=== PATIENT | female | born 1950 ===

== ENCOUNTER 2016-07-10 12:51 | Emergency (ER) | payer MEDICARE, OTHER ==
[2016-07-10 13:04] VITALS: TEMP 97.7
--- NOTE | 2016-07-10 14:28 | C.PDOC ---
History Of Present Illness 65 yr old female presents to the ER for evaluation of left breast mass noted for the past few week. Patient states she was scheduled for a mammogram " at facility across [address] by my PMD but once getting there I was informed they do not accept my insurance and was told to go to ED for study". Patient denies history of breast disease in past, fever, night sweats, weight loss, denies Left breast pain, chest pain, SOB, dyspnea, diaphoresis, palpitation, skin changes over left breast, nipple changes or discharges, nausea, vomiting, or any other active complaints. Ambulate to Ed for evaluation, not n any apparent distress.. Time Seen by Provider: 07/10/16 13:19 Chief Complaint (Nursing): Abnormal Skin Integrity History Per: Patient History/Exam Limitations: no limitations Onset/Duration Of Symptoms: Days (Few weeks) Past Medical History Reviewed: Historical Data, Nursing Documentation, Vital Signs Vital Signs: Last Vital Signs Temp 97.7 F 07/10/16 12:57 Pulse 88 07/10/16 15:00 Resp 18 07/10/16 15:00 BP 132/78 07/10/16 15:00 Pulse Ox 97 07/10/16 19:23 - Medical History PMH: Asthma, Gastritis, HTN Family History: States: No Known Family Hx - Social History Hx Alcohol Use: No Hx Substance Use: No - Immunization History Hx Tetanus Toxoid Vaccination: Yes Hx Influenza Vaccination: Yes Hx Pneumococcal Vaccination: (unk) Review Of Systems Except As Marked, All Systems Reviewed And Found Negative. Constitutional: Negative for: Fever Cardiovascular: Negative for: Chest Pain Respiratory: Negative for: Shortness of Breath Gastrointestinal: Negative for: Nausea, Vomiting Musculoskeletal: Negative for: Back Pain Skin: Positive for: Other (Left breast mass. ) Neurological: Negative for: Weakness, Numbness Physical Exam - Physical Exam Appears: Well, Non-toxic, No Acute Distress Skin: Warm, Dry, No Rash Oral Mucosa: Moist Throat: Normal, No Erythema, No Exudate, No Drooling Neck: Trachea Midline, Supple Lymphatic: No Axilla Node Tenderness (Left) Chest: Symmetrical, No Deformity, No Tenderness, Other (Left Breast:Palpable breast mass, 4#5 cm at the 3 oclock position. No skin changes. No nipple changes. ) Cardiovascular: Rhythm Regular, No Murmur Respiratory: No Rales, No Rhonchi, No Stridor, No Wheezing Gastrointestinal/Abdominal: Soft, No Tenderness Extremity: No Pedal Edema, No Swelling Neurological/Psych: Oriented x3, Normal Speech ED Course And Treatment O2 Sat by Pulse Oximetry: 97 Pulse Ox Interpretation: Normal Progress Note: Clinical findings discussed with patent. [facility] about [facility] given to patient. Ref. to F/u with Breast Clinic in 1-2 days for further evluation of left breast mass. return if any new changes. Disposition - Disposition Referrals: [facility] [Outside] [facility] [Outside] [facility] [Outside] Disposition: HOME/ ROUTINE Disposition Time: 14:26 Condition: STABLE Additional Instructions: Follow up with [facility] at [facility] or [facility] return to Ed if any worsening or new changes. Instructions: Breast Mass (ED) Print Language: WELSH - Clinical Impression Clinical Impression: Breast mass in female - PA / STATION SUPERVISOR / Resident Statement MD/DO has reviewed & agrees with the documentation as recorded. - Scribe Statement The provider has reviewed the documentation as recorded by the Scribe Marcelle Brown All medical record entries made by the Scribe were at my direction and personally dictated by me. I have reviewed the chart and agree that the record accurately reflects my personal performance of the history, physical exam, medical decision making, and the department course for this patient. I have also personally directed, reviewed, and agree with the discharge instructions and disposition.
[2016-07-10 15:17] VITALS: BP 132/78; PULSE 88; RESP 18
[2016-07-10 19:22] VITALS: O2SAT 97
== END 2016-07-10 15:00 | disposition home or self-care (01) ==
LOC: C.ER 12:51
DX: N63 Unspecified lump in breast (principal)

== ENCOUNTER 2017-07-30 09:22 | Emergency (ER) | payer MEDICARE ==
[2017-07-30 09:36] VITALS: BMI 27.6
[2017-07-30 09:59] VITALS: RESP 26
--- NOTE | 2017-07-30 10:00 | C.PDOC ---
History Of Present Illness 66 year old female presents to the ED for asthma exacerbation x 2 days. Patient found no relief with home MDI and nebulizer, and last dose was prior to arrival. Patient reports subjective fever and cough. Patient is currently receiving chemotherapy for breast cancer (Dr. Jacobsen). History obtained via work station support specialist. VIA TRANS ASTHMA EXAC X 2 DAYS. NO RELIEF W HOME MDI AND NEB, LAST DOSE CLOCK AND WATCH HANDS DIPPER. SUBJ FEVER. + COUGH. CURRENTLY RECEIVING CHEMO FOR BREAST CA (DR JACOBSEN). 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 History/Exam Limitations: no limitations Onset/Duration Of Symptoms: Days (2) Current Symptoms Are (Timing): Still Present Current Respiratory Medications: See Home Med List Associated Symptoms: Fever Additional History Per: Patient Past Medical History Reviewed: Historical Data, Nursing Documentation, Vital Signs Vital Signs: Last Vital Signs Temp 100.6 F H 07/30/17 13:26 Pulse 120 H 07/30/17 13:26 Resp 26 H 07/30/17 13:26 BP 111/49 L 07/30/17 13:26 Pulse Ox 93 L 07/30/17 13:52 - Medical History PMH: Asthma, Gastritis, HTN Surgical History: No Surg Hx Family History: States: Unknown Family Hx - Social History Hx Alcohol Use: No Hx Substance Use: No - Immunization History Hx Tetanus Toxoid Vaccination: Yes Hx Influenza Vaccination: Yes Hx Pneumococcal Vaccination: (unk) Review Of Systems Constitutional: Positive for: Fever Respiratory: Positive for: Cough, Other (asthma exacerbation ) Physical Exam - Physical Exam Appears: Non-toxic, Other (in mild distress ) Skin: Normal Color, Warm, Dry Head: Atraumatic, Normacephalic Eye(s): bilateral: Normal Inspection Oral Mucosa: Moist Neck: Supple Chest: Symmetrical, No Deformity, No Tenderness, Other (sinus tachycardia ) Cardiovascular: Rhythm Regular, No Murmur Respiratory: No Rales, No Rhonchi, Wheezing (bilateral, expiratory ), Other ( tachypnea with retractions. speaking in full sentences ) Extremity: Normal ROM, Capillary Refill (less than 2 seconds ), No Other (edema ) Neurological/Psych: Oriented x3, Normal Speech, Normal Cognition ED Course And Treatment - Laboratory Results Result Diagrams: 07/30/17 10:38 07/30/17 10:38 ECG: Interpreted By Me, Viewed By Me ECG Rhythm: Sinus Tachycardia Rate From EC O2 Sat by Pulse Oximetry: 93 - Other Rad CXR X-Ray: Interpreted by Me, Viewed By Me Interpretation: PROCEDURE: CHEST RADIOGRAPH, 1 VIEW. HISTORY: SOB. COMPARISON: Comparison made with chest radiograph 01/14/2016 interval placement left subclavian MediPort with tip in the SVC. FINDINGS: LUNGS: Low lung volumes with crowded bronchovascular markings and mild bibasilar atelectasis. PLEURA: No pneumothorax or pleural fluid seen. CARDIOVASCULAR: Heart appears mildly enlarged. OSSEOUS STRUCTURES: No significant abnormalities. VISUALIZED UPPER ABDOMEN: Normal. OTHER FINDINGS: None. IMPRESSION: Low lung volumes with crowded bronchovascular markings and mild bibasilar atelectasis. - CT Scan/US CT angio Other Rad Studies (CT/US): Interpreted By Me, Read By Radiologist CT/US Interpretation: PROCEDURE: CT Chest with contrast (Pulmonary Angiogram). HISTORY: SOB. COMPARISON: None available. TECHNIQUE: Axial computed tomography images were obtained of the chest in the pulmonary arterial phase of enhancement. Coronal and sagittal reformatted images were created and reviewed. Intravenous contrast dose: 100 cc Visipaque 320. Radiation dose: Total exam DLP = 382.44 mGy-cm. This CT exam was performed using one or more of the following dose reduction techniques: Automated exposure control, adjustment of the mA and/or kV according to patient size, and/or use of iterative reconstruction technique. FINDINGS: PULMONARY ARTERIES: The visualized pulmonary trunk, right and left main, segmental and proximal subsegmental branches of the pulmonary arteries are patent with no definitive filling defects seen to suggest acute pulmonary embolus. Pulmonary trunk measures approximately 2.6 cm. AORTA: No acute findings. No evidence of thoracic aortic aneurysm Ascending thoracic aorta measures approximately 3.36 cm and descending thoracic aorta measures approximately 2.6 cm. Partially calcified atherosclerotic plaque seen along the aortic arch and to a lesser degree descending thoracic aorta. LUNGS: Chronic atelectasis and or scarring changes of both lung bases left greater than right, including the lingular and middle lobe regions. There is also a localized area of pleural thickening and adjacent parenchymal scarring in the left lateral upper lung field. . A 2nd elliptical shaped area of atelectasis/scarring seen slightly more inferior and anteriorly located extending to the pleural surface as well. PLEURAL SPACES: Unremarkable. No effusion or pneumothorax. HEART: Heart size is upper limits of normal/borderline enlarged. No significant pericardial effusion. . There is however relatively large elliptical shaped fluid collection adjacent to the right posterior inferior atrium within the mediastinum that measures approximately 4.1 x 3.0 cm. This could represent a large pericardial cyst or possibly a bronchogenic cyst former favored. LYMPH NODES: Few small nonspecific mediastinal lymph nodes are present none of which appear pathologically enlarged. Central airways midline and patent. No large central endoluminal lesions. There is a small hiatal hernia with slight wall thickening of the distal esophagus likely due to protrusion of gastric mucosa. BONES, CHEST WALL: Multilevel chronic appearing wedge compression fracture deformities of the thoracic and upper lumbar region. OTHER FINDINGS: The thyroid gland is enlarged and markedly heterogeneous containing multiple varying sized low-attenuation foci likely representing a nodular goiter. Followup thyroid ultrasound recommended. IMPRESSION: No evidence of acute central pulmonary embolus. Probable of moderately large pericardial cyst as described. See above discussion for differential diagnostic considerations. Chronic atelectasis and or scarring changes of both lung bases left greater than right, including the lingular and middle lobe regions. There is also a localized area of pleural thickening and adjacent parenchymal scarring in the left lateral upper lung field. A 2nd elliptical shaped area of atelectasis/ scarring seen slightly more inferior and anteriorly located extending to the pleural surface as well. Progress Note: Bloodwork, CT Angio Chest, CXR, EKG ordered and reviewed. Albuterol INH and Solu-Medrol IVP administered. Progress - Re-Evaluation Re-evaluation Note: 07/30/17 13:03 NARD PS FEELS BETTER "NORMAL". CTA B/L NO W/R/R IMPROVED COMPARED TO PRIOR. 07/30/17 13:34 D/W DR BARROSO AWARE OF ER FINDINGS. RECOMMENDS OBS. NO ABX @ THIS TIME. 07/30/17 13:47 PT ADVISED ADMISSION, REFUSING TO STAY . VOICES UNDERSTANDING OF RISKS/BENEFITS INCLUDING DISABILITY DETERIORATION AND . PT UNDERSTANDS. ADVISED FU DR BARROSO 07/31. AMBUL WO DIFF, NO FARIAS/SOB. PERSIST TACHY S/P MULT MEDS, POSSIBLE EARLY FEBRILE STATE. - Data Reviewed Data Reviewed: Lab, Diagnostic imaging, EKG, Old records - Continuity of Care Discussed pt. case with document management consultant/specialty: Oncology Disposition Counseled Patient/Family Regarding: Studies Performed, Diagnosis, Need For Followup, Rx Given - Disposition Referrals: Maren Barroso MD [Staff Provider] - Disposition: AGAINST MEDICAL ADVICE Disposition Time: 13:50 Condition: STABLE Additional Instructions: USTED SUBRAMANIAN SIDO INFORMADO DE LA NECESIDAD DE ADMISIN PARA EL TRATAMIENTO DE DENT ESTADO. USTED SUBRAMANIAN SIDO INFORMADO DE LOS RIESGOS / BENEFICIOS, INCLUYENDO LA DISCAPACIDAD, EL DETERIORO Y LA MUERTE. SIGUE CON TU PMD CUANTO ANTES. Prescriptions: predniSONE [Prednisone] 60 mg PO DAILY #12 tab Instructions: Asthma, Adult (DC), Leaving Against Medical Advice, Tachycardia ( DC) Forms: [employer] (Urdu) Print Language: CHINESE - Clinical Impression Clinical Impression: High serum lactate, Asthma exacerbation - Scribe Statement The provider has reviewed the documentation as recorded by the Scribe (Emili Nolan) Provider Attestation: All medical record entries made by the Scribe were at my direction and personally dictated by me. I have reviewed the chart and agree that the record accurately reflects my personal performance of the history, physical exam, medical decision making, and the department course for this patient. I have also personally directed, reviewed, and agree with the discharge instructions and disposition.
[2017-07-30] MEDS ORDERED: MethylPREDNISolone 40 mg Vial IVP STA (10:10)
[2017-07-30] MEDS: Albuterol 0.083% Inhal Sol (2.5 mg/3 mL) UD INH SCH ×3 (10:14→10:45)
[2017-07-30] MEDS ORDERED: MethylPREDNISolone 40 mg Vial ONE (10:25)
[2017-07-30] MEDS ORDERED: Albuterol 0.083% Inhal Sol (2.5 mg/3 mL) UD ONE ×3 (10:26→11:21)
[2017-07-30 10:32] LABS: VENOUS BLOOD GAS BASE EXCESS 3.1 mmol/L (0.0-2.0); VENOUS BLOOD GAS PCO2 51 mmHg (40-60); VENOUS BLOOD GAS PO2 23 mm/Hg (30-55); VENOUS BLOOD PH 7.37 (7.32-7.43)
--- NOTE | 2017-07-30 10:45 | RAD ---
PROCEDURE: CHEST RADIOGRAPH, 1 VIEW HISTORY: SOB COMPARISON: Comparison made with chest radiograph 01/14/2016 interval placement left subclavian MediPort with tip in the SVC. FINDINGS: LUNGS: Low lung volumes with crowded bronchovascular markings and mild bibasilar atelectasis. PLEURA: No pneumothorax or pleural fluid seen. CARDIOVASCULAR: Heart appears mildly enlarged. OSSEOUS STRUCTURES: No significant abnormalities. VISUALIZED UPPER ABDOMEN: Normal. OTHER FINDINGS: None. IMPRESSION: Low lung volumes with crowded bronchovascular markings and mild bibasilar atelectasis.
[2017-07-30 10:55] LABS: BASO % 0.3 % (0.0-2.0); EOS # 0.3 K/uL (0.0-0.7); HEMOGLOBIN 12.8 g/dL (11.0-16.0); LYMPH # 1.1 K/uL (1.0-4.3); LYMPH % 16.3 % (20.0-40.0); MEAN CELL VOLUME 90.4 fL (81.0-99.0); MEAN CORPUSCULAR HGB CONC 35.4 g/dL (33.0-37.0); MEAN PLATELET VOLUME 6.9 fL (7.2-11.7); MONO % 14.4 % (0.0-10.0); NEUT # 4.3 K/uL (1.8-7.0); NRBC % 0.1 % (0.0-2.0); RBC 4.01 Mil/uL (3.80-5.20); RED CELL DISTRIBUTION WIDTH 14.5 % (11.5-14.5); WHITE BLOOD COUNT 6.6 K/uL (4.8-10.8)
[2017-07-30 10:59] LABS: INR 1.2; PROTHROMBIN TIME 13.1 SECONDS (9.7-12.2)
[2017-07-30 11:21] LABS: ALB/GLOB RATIO 1.1 (1.0-2.1); ALBUMIN 4.3 g/dL (3.5-5.0); ALT/SGPT 36 U/L (9-52); AST/SGOT 44 U/L (14-36); BLOOD UREA NITROGEN 6 mg/dL (7-17); CALCIUM 9.7 mg/dl (8.6-10.4); GFR AFRICAN-AMERICAN > 60; GFR NON-AFRICAN AMERICAN > 60
[2017-07-30 11:26] LABS: B-TYPE NATRIURETIC PEPTIDE 34.4 pg/mL (0-900)
[2017-07-30] MEDS ORDERED: Iodixanol 320 MG/ML 100 ML BOTTLE IV ONE (11:28)
--- NOTE | 2017-07-30 12:50 | CT ---
PROCEDURE: CT Chest with contrast (Pulmonary Angiogram) HISTORY: SOB COMPARISON: None available. TECHNIQUE: Axial computed tomography images were obtained of the chest in the pulmonary arterial phase of enhancement. Coronal and sagittal reformatted images were created and reviewed. Intravenous contrast dose: 100 cc Visipaque 320 Radiation dose: Total exam DLP = 382.44 mGy-cm. This CT exam was performed using one or more of the following dose reduction techniques: Automated exposure control, adjustment of the mA and/or kV according to patient size, and/or use of iterative reconstruction technique. FINDINGS: PULMONARY ARTERIES: The visualized pulmonary trunk, right and left main, segmental and proximal subsegmental branches of the pulmonary arteries are patent with no definitive filling defects seen to suggest acute pulmonary embolus. Pulmonary trunk measures approximately 2.6 cm. AORTA: No acute findings. No evidence of thoracic aortic aneurysm Ascending thoracic aorta measures approximately 3.36 cm and descending thoracic aorta measures approximately 2.6 cm. Partially calcified atherosclerotic plaque seen along the aortic arch and to a lesser degree descending thoracic aorta. LUNGS: Chronic atelectasis and or scarring changes of both lung bases left greater than right, including the lingular and middle lobe regions. There is also a localized area of pleural thickening and adjacent parenchymal scarring in the left lateral upper lung field. . A 2nd elliptical shaped area of atelectasis/scarring seen slightly more inferior and anteriorly located extending to the pleural surface as well. PLEURAL SPACES: Unremarkable. No effusion or pneumothorax. HEART: Heart size is upper limits of normal/borderline enlarged. No significant pericardial effusion. . There is however relatively large elliptical shaped fluid collection adjacent to the right posterior inferior atrium within the mediastinum that measures approximately 4.1 x 3.0 cm. This could represent a large pericardial cyst or possibly a bronchogenic cyst former favored. LYMPH NODES: Few small nonspecific mediastinal lymph nodes are present none of which appear pathologically enlarged. Central airways midline and patent. No large central endoluminal lesions. There is a small hiatal hernia with slight wall thickening of the distal esophagus likely due to protrusion of gastric mucosa. BONES, CHEST WALL: Multilevel chronic appearing wedge compression fracture deformities of the thoracic and upper lumbar region. OTHER FINDINGS: The thyroid gland is enlarged and markedly heterogeneous containing multiple varying sized low-attenuation foci likely representing a nodular goiter. Followup thyroid ultrasound recommended. IMPRESSION: No evidence of acute central pulmonary embolus. Probable of moderately large pericardial cyst as described. See above discussion for differential diagnostic considerations. Chronic atelectasis and or scarring changes of both lung bases left greater than right, including the lingular and middle lobe regions. There is also a localized area of pleural thickening and adjacent parenchymal scarring in the left lateral upper lung field. A 2nd elliptical shaped area of atelectasis/scarring seen slightly more inferior and anteriorly located extending to the pleural surface as well.
[2017-07-30 12:56] LABS: VENOUS BLOOD GAS BASE EXCESS -2.8 mmol/L (0.0-2.0); VENOUS BLOOD GAS PCO2 37 mmHg (40-60); VENOUS BLOOD GAS PO2 40 mm/Hg (30-55); VENOUS BLOOD PH 7.38 (7.32-7.43)
[2017-07-30 13:27] VITALS: TEMP 100.6
[2017-07-30 13:29] VITALS: BP 111/49; PULSE 120
[2017-07-30 13:37] VITALS: O2SAT 93
[2017-07-30 14:03] LABS: URINE BILIRUBIN NEGATIVE (NEGATIVE); URINE BLOOD NEGATIVE (NEGATIVE); URINE CLARITY Clear (Clear); URINE COLOR Yellow (YELLOW); URINE GLUCOSE (UA) NORMAL (Normal); URINE LEUKOCYTE ESTERASE NEG Leu/uL (Negative); URINE PROTEIN NEGATIVE (NEGATIVE); URINE UROBILINOGEN NORMAL mg/dL (0.2-1.0)
--- NOTE | 2017-07-31 23:54 | CARD ---
APPROVED REPORT EKG Measurement Heart [id number] <Conclusion> Sinus tachycardia Left anterior fascicular block Septal infarct, age undetermined Abnormal ECG
== END 2017-07-30 14:19 | disposition left against medical advice (07) ==
LOC: C.ER 09:22
DX: R74.8 Abnormal levels of other serum enzymes (principal)
CPT/HCPCS: 71045; 71275; 80053; 81001; 82803; 83880; 84484; 85025; 85610; 85730; 87086; 93005; 94640; 96374; 99285; J2920; Q9967

== ENCOUNTER 2018-03-18 10:17 | Outpatient (CLI) | payer MEDICARE | END 2018-03-18 10:18 | disposition home or self-care (01) | LOC: C.CARD 10:17 | DX: C50.112 Malignant neoplasm of central portion of left female breast (principal) ==